=== PATIENT | male | born 1980 | race Hispanic/Latino ===

== ENCOUNTER 2016-12-27 11:39 | Emergency (ER) | payer MEDICAID, OTHER ==
[~2016-12-27] VITALS: Ht 172.7 cm; Wt 94.3 kg
[2016-12-27] MEDS ORDERED: KETOROLAC 60 MG/2 ML VIAL IM STA (12:09)
[2016-12-27] MEDS ORDERED: ORPHENADRINE 60 MG/2 ML (NORFLEX) AMP IM STA (12:09)
--- NOTE | 2016-12-27 12:11 | ED Back Pain ---
General Chief Complaint: Back Problems Stated Complaint: LOWER BACK PAIN Nursing Triage Note: AMB TO ROOM C/O BACK PAIN NO INJURY. TOOK A FRIENDS PAIN MEDS YESTERDAY Nursing Sepsis Screen: No Definite Risk Source of Information: Patient Exam Limitations: No Limitations History of Present Illness Time Seen by Provider: 12:00 Initial Comments 36 yo male patient presents to the ED with c/o low back pain beginning yesterday when he woke up. Denies known injury. Patient is lying on his stomach with the left knee and hip flexed and hip rotated externally. Patient report pain radiating down the rt buttock to the foot with standing. Denies numbness, tingling, weakness, bowel incontinence, or bladder incontinence. Patient reports taking one of his friends pain pills yesterday and thinks it was maybe a percocet or hydrocodone. denies taking tylenol or motrin. Location: Lumbar Spine Timing/Duration: 1 Day, Constant Method of Injury: Unknown Modifying Factors: Improves With Immobilization, Worse With Movement Associated Symptoms: muscle spasms, No fever, No weakness, No numbness in legs/ feet, No tingling in legs/feet, No sensory/motor loss, lower back pain, No loss of bladder control, No loss of bowel control Allergies and Home Medications Allergies Coded Allergies: No Known Drug Allergies (Unverified , 12/27/16) Home Medications Cyclobenzaprine HCl 10 Mg Tablet, 10 MG PO Q8H PRN for SPASMS, #9 Ref 0 Prescribed by: MILIND GARRETT on 12/27/16 1256 Ketoprofen 75 Mg Capsule, 75 MG PO TID PRN for pain, #14 Ref 0 Prescribed by: MILIND GARRETT on 12/27/16 1256 Prednisone 20 Mg Tab, 40 MG PO DAILY, #10 Ref 0 Prescribed by: MILIND GARRETT on 12/27/16 1256 Constitutional: No chills, No dizziness, No fever, No malaise, No weakness EENTM: no symptoms reported Respiratory: No cough, No short of breath Cardiovascular: No chest pain, No palpitations Gastrointestinal: No abdominal pain, No constipation, No diarrhea, No nausea, No vomiting Genitourinary: No decreased output, No dysuria, No frequency, No hematuria Musculoskeletal: see HPI, back pain, joint pain, No neck pain Skin: no symptoms reported Psychiatric/Neurological: Denies Numbness, Denies Paresthesia, Denies Tingling , Denies Weakness All Other Systems Reviewed Negative Unless Noted: Yes (Negative excepted noted.) Past Oofsqst-Tjfafq-Rbutzu Hx Patient Social History Alcohol Use: Denies Use Recreational Drug Use: No Smoking Status: Current Everyday Smoker Recent Foreign Travel: No Contact w/Someone Who Travel: No Recent Infectious Disease Expo: No Surgeries History of Surgeries: No Respiratory History of Respiratory Disorde: No Cardiovascular History of Cardiac Disorders: No Neurological History of Neurological Disord: No Genitourinary History of Genitourinary Disor: No Gastrointestinal History of Gastrointestinal Di: No Musculoskeletal History of Musculoskeletal Dis: No Endocrine History of Endocrine Disorders: No HEENT History of HEENT Disorders: No Reviewed Nursing Assessment Reviewed/Agree w Nursing PMH: Yes Family Medical History Significant Family History: No Pertinent Family Hx Physical Exam Vital Signs Vital Sign - Last 12Hours 12/27/16 11:50 Temp 97.6 Pulse 78 Resp 18 B/P (MAP) 144/87 Pulse Ox 97 O2 Delivery Room Air Capillary Refill : Less Than 3 Seconds General Appearance: No Apparent Distress, WD/WN, Other (patient lying on his stomach with the left knee and hip flexed. left hip externally rotated.) HEENT: PERRL/EOMI, Pharynx Normal Neck: Full Range of Motion, Normal Inspection, Non Tender, Supple Cardiovascular: Regular Rate, Rhythm, No Murmur, Normal Peripheral Pulses Respiratory: Lungs Clear, Normal Breath Sounds, No Accessory Muscle Use, No Respiratory Distress Peripheral Pulses: 2+ Dorsalis Pedis (R), 2+ Left Dors-Pedis (L), 2+ Radial Pulses (R), 2+ Radial Pulses (L) Gastrointestinal: Normal Bowel Sounds, No Organomegaly, Non Tender, Soft Back: Normal Inspection, No CVA Tenderness, Decreased Range of Motion, Vertebral Tenderness (lower lumbar tenderness without deformity or stepoff. Exaggerated pain response with slight palpation of the lumbar spine.) Extremity: Normal Capillary Refill, Normal Inspection, Normal Range of Motion, Non Tender (unable to reproduce RLE tenderness/pain.), No Pedal Edema Neurologic/Psychiatric: Alert, Oriented x3, No Motor/Sensory Deficits, Normal Mood/Affect Skin: Normal Color, Warm/Dry Progress/Results/Core Measures Results/Orders My Orders Orders - MILIND GARRETT Lumbar Spine - 2-3 Views (12/27/16 12:09) Ketorolac Injection (Toradol Injection) (12/27/16 12:09) Orphenadrine Injection (Norflex Injectio (12/27/16 12:09) Vital Signs/I&O Vital Sign - Last 12Hours 12/27/16 12/27/16 11:50 13:09 Temp 97.6 Pulse 78 78 Resp 18 18 B/P (MAP) 144/87 Pulse Ox 97 97 O2 Delivery Room Air Blood Pressure Mean: 106 Diagnostic Imaging Diagonstic Imaging: Xray Plain Films/CT/US/NM/MRI: other (lumbar spine) Comments FINDINGS: There is straightening of the lumbar spine curvature, likely positional or related to muscle spasm. The alignment of the posterior spinal line is satisfactory. The vertebral body heights are preserved. The disc heights are also preserved with no significant osteophytes seen. The paraspinal soft tissues appear unremarkable. The SI joints appear symmetric. IMPRESSION: Straightening of the lumbar spine curvature could be positional or related to muscle spasm. Dictated on workstation # [id number] Reviewed: Reviewed by Me (radiology report reviewed by me) Departure Communication (Admissions) Progress Notes 1235 patient ambulating around the room without difficulty. Sits on the side of the bed without grimacing or pain response. Patient states he is feeling better with medications. Diagnostic findings discussed with the patient. Plan for discharge to home. All return precautions were discussed with the patient as described in the discharge instructions of this report. Patient verbalizes understanding and agrees with the treatment plan. Patient ambulated from the emergency department without difficulty. Impression Impression: Primary Impression: Back strain Qualified Codes: S39.012A - Strain of muscle, fascia and tendon of lower back , initial encounter Disposition: 01 HOME, SELF-CARE Condition: Improved Departure-Patient Inst. Decision time for Depature: 12:40 Referrals: NO,LOCAL PHYSICIAN (PCP/Family) Primary Care Physician Patient Instructions: Low Back Pain (DC), Radiculopathy (DC) Add. Discharge Instructions: All discharge instructions reviewed with patient and/or family. Voiced understanding. Medications as instructed. Tylenol extra strength over-the- counter as directed for pain. No heavy lifting, pushing, pulling, twisting, bending, climbing 7 days. Increase activity as tolerated. Ice packs or heating pads as needed for pain. Follow-up with the family practitioner of your choice for recheck if no improvement in symptoms in 7-10 days for possible need of outpatient MRI of the back. Return to the emergency department for worsened symptoms, bowel incontinence, bladder,, numbness, weakness, discoloration, or any other concerns. Scripts Cyclobenzaprine HCl (Cyclobenzaprine HCl) 10 Mg Tablet 10 MG PO Q8H Y for SPASMS, #9 TAB 0 Refills Prov: MILIND GARRETT 12/27/16 Ketoprofen (Ketoprofen) 75 Mg Capsule 75 MG PO TID Y for pain, #14 CAP 0 Refills Prov: MILIND GARRETT 12/27/16 Prednisone (Prednisone) 20 Mg Tab 40 MG PO DAILY, #10 TAB 0 Refills Prov: MILIND GARRETT 12/27/16 Work/School Note: Local Medical Staff Listing, Work Release Form Date Seen in the Emergency Department: Dec 27, 2016 Return to Work: Dec 27, 2016 Other Restrictions Listed Below: no heavy lifting, pushing, pulling, twisting, bending, climbing x7 days. MILIND GARRETT Dec 27, 2016 12:11
--- NOTE | 2016-12-27 12:50 | Diagnostic Imaging Report ---
EXAMINATION: Three views of the lumbar spine. INDICATION: Low back pain. FINDINGS: There is straightening of the lumbar spine curvature, likely positional or related to muscle spasm. The alignment of the posterior spinal line is satisfactory. The vertebral body heights are preserved. The disc heights are also preserved with no significant osteophytes seen. The paraspinal soft tissues appear unremarkable. The SI joints appear symmetric. IMPRESSION: Straightening of the lumbar spine curvature could be positional or related to muscle spasm. Dictated by: Dictated on workstation # [id number]
[2016-12-27] MEDS ORDERED: PRD20T PO (12:56)
[2016-12-27] MEDS ORDERED: KETO75CA PO (12:56)
[2016-12-27] MEDS ORDERED: CYCL10TA9 PO (12:56)
[2016-12-27 13:09] VITALS: BP 144/87
== END 2016-12-27 13:00 | disposition home or self-care (01) ==
LOC: ER 11:42
DX: S39.012A Strain of muscle, fascia and tendon of lower back, initial encounter (principal); F17.200 Nicotine dependence, unspecified, uncomplicated; X58.XXXA Exposure to other specified factors, initial encounter
CPT/HCPCS: 72100; 96372; 99284